=== PATIENT | male | born 1995 | race Two or more races ===

== ENCOUNTER 2024-03-02 23:03 | Emergency (ER) | payer MEDICAID, SELFPAY ==
[2024-03-02 23:04] VITALS: BMI 25.1
[2024-03-03 00:19] VITALS: BP 126/61; PULSE 69; RESP 16; TEMP 36.7; O2SAT 100
--- NOTE | 2024-03-03 00:27 | XR_ITS ---
Examination: CT abdomen with intravenous contrast CT pelvis with intravenous contrast 2-D coronal reconstructions 2-D sagittal reconstructions Date and time of exam:March 03, 2024 0233 hours INDICATIONS: Right groin lump and pain nausea vomiting beginning one month ago. CTDI: vol (mGy) 6.30 DLP: (mGycm) 379 Technique: Multiple axial sections of the abdomen and pelvis have been obtained. 64 slice high-resolution scanner used. 3 mm axial sections have been obtained, post intravenous injection 60 cc [id number] 2-D sagittal, coronal reconstructions obtained. Low dose protocols were performed. One or more of the following dose reduction techniques were used; automated exposure control, adjustment of the mA and/or KV according to patient size, use of iterative reconstruction technique. Findings: No focal liver or splenic lesions Splenomegaly AP dimension 14 cm Dilated inferior vena cava No gallstones No pancreatic mass No hydronephrosis renal or ureteral calculi Aorta normal size Normal appendix No bowel obstruction Urinary bladder intact Osseous structures intact IMPRESSION: Splenomegaly. Normal appendix No renal or ureteral calculi
--- NOTE | 2024-03-03 00:28 | PD.EDRME ---
Rapid Medical Screening Exam COUNTS INCLUDE 234 BEDS AT THE [facility] Arrival date/time: 03/02/24 23:03 29M with history of alcohol abuse and marijauna use presents to ED with 1 day of worsening RLQ/pelvic pain/lump and N/V. Chief Complaint: Urogenital-Male Vital signs: Vital Signs Temperature 98.1 F 03/03/24 00:19 Pulse Rate 69 03/03/24 00:19 Respiratory Rate 16 03/03/24 00:19 Blood Pressure 126/61 03/03/24 00:19 Pulse Oximetry (%) 100 03/03/24 00:19 Oxygen Delivery Method Room Air 03/03/24 00:19
[2024-03-03] MEDS: ONDANSETRON INJ 2 MG/ML INJ 2 ML 4 MG IV ×2 (01:02→02:41)
[2024-03-03] MEDS: MORPHINE SULF INJ 10 MG/ML VIAL 5 MG IVP ×2 (01:03→02:40)
--- NOTE | 2024-03-03 01:31 | PD.EDMALE ---
ED Male Genitalurinary RME/HPI General Chief complaint: Urogenital-Male Stated complaint: RT GROIN LUMP/PAIN X1MON Time Seen by Provider: 03/03/24 01:33 Arrival date/time: 03/02/24 23:03 RME / HPI RME / HPI Narrative: 03/02/24 23:03 29M with history of alcohol abuse and marijauna use presents to ED with 1 day of worsening RLQ/pelvic pain/lump and N/V. ------ Dr. Lambert?s Main ED Evaluation: 29yo male presents to the ED for a chief complaint of lower abdominal pain x 1999. Patient states he started having lower abdominal pain, reporting it is sharp in nature. He reports associated nausea and vomiting, and has not been able to keep anything down. He states the pain has now migrated to his right groin area, currently rating it an 8 out of 10 in severity. He denies any fever, chills, hematemesis or any other associated symptoms. Denies any history of similar symptoms. No known allergies. Related Data Home Medications ?Medication ?Instructions ?Recorded ?Confirmed furosemide 40 mg tablet 40 mg PO BID 06/02/23 06/02/23 spironolactone 25 mg tablet 25 mg PO BID 06/02/23 06/02/23 Previous Rx's ?Medication ?Instructions ?Recorded metronidazole 500 mg tablet 500 mg PO BID #10 tabs 06/07/23 pantoprazole 40 mg tablet,delayed 40 mg PO BID 30 days #60 tabs 06/07/23 release (Protonix) Allergies Allergy/AdvReac Type Severity Reaction Status Date / Time No Known Allergies Allergy Verified 03/02/24 23:07 Review of Systems Review of Systems Systems Reviewed: All systems reviewed, normal except as documented Narrative Review of Systems: Gen: No fever, no chills, no weight loss EYES: No discharge, no visual changes, no pain HEENT: No ear pain, no congestion, no sore throat PULM: No shortness of breath, no cough, no congestion CV: No chest pain, no dyspnea on exertion, no palpitations GI: + nausea, + vomiting, no diarrhea, + pain, no constipation : No frequency, no urgency, no dysuria Musc/skel: No joint pain, no back pain Skin: No rash Psyc: No hallucinations, no depression Heme/Lymph: No easy bleeding or bruising tendencies Neuro: No weakness, no headache Past Medical History Past Medical History NEUROLOGIC: Negative Neurological Disorders or Seizures CARDIAC: Negative Cardiac Disorders or Congestive Heart Failure RESPIRATORY: Negative Chronic Obstructive Pulmonary Disease (COPD) or Asthma GASTROINTESTINAL: Positive Gastrointestinal Disorders and Cirrhosis; Negative Hepatitis GENITOURINARY: Negative Genitourinary Disorders or Renal Disease MUSCULOSKELETAL: Negative Musculoskeletal Disorders ENDOCRINE: Negative Endocrine Disorders, Diabetes Mellitus Type 1 or Diabetes Mellitus Type 2 HEMATOLOGIC: Positive Blood Disorders and Anemia; Negative Sickle Cell Disease OTHER HISTORY: Negative Autoimmune Disease, Blood Transfusions, Blood Transfusion Reaction, Anesthesia Reactions, MRSA, Clostridium Difficile or Cancer Family History FAMILY HISTORY: Positive Family Respiratory Disorders and Family Cancer; Negative Family Psychiatric Problems, Family Cardiac Disorders, Family Gastrointestinal Problems, Family Surgery or Family Anesthesia Reaction Surgical History SURGICAL: Negative Mastectomy or Vasectomy Social History SMOKING STATUS: Never smoker SUBSTANCE USE: marijuana and crack/cocaine ED Exam Narrative Physical exam: GENERAL APPEARANCE: alert and oriented x 4, well-developed, well-nourished, no acute distress HEENT: Normocephalic, atraumatic; pupils equal, round, reactive to light; EOMI; mucous membranes pink, moist; oropharynx clear NECK: Supple LUNGS: CTABL; no wheezes, no rales, no rhonchi HEART: Regular rate, regular rhythm; normal S1, S2; no murmurs ABDOMEN: non distended; normal BS; soft, no guarding, no rebound; no organomegaly; tender, firm, palpable mass at the inguinal region that is consistent with an inguinal hernia BACK: no CVA tenderness EXTREMITIES: atraumatic; no edema NEUROLOGIC: awake; alert and oriented x4; cranial nerves II-XII grossly intact; no focal sensory or motor deficits PSYCHIATRIC: appropriate mood and affect SKIN: warm, dry, normal color; no rashes Course Course Course Narrative: 0232: After the patient received morphine, I applied gentle continuous pressure and was able to reduce the inguinal hernia. Quality Measures none Orders Category Date Time Status CT Screening NOW Care 03/03/24 00:27 Completed Insert IV NOW Care 03/03/24 00:[address] abdomen pelvis w con Stat Exams 03/03/24 00:27 Completed CBC Stat Lab 03/03/24 01:05 Completed CMP [Comprehensive Metabolic Panel] Stat Lab 03/03/24 01:05 Completed Lactate (Lactic Acid) Stat Lab 03/03/24 02:58 Completed Lipase Stat Lab 03/03/24 01:05 Completed Morphine Inj Med 03/03/24 00:27 Discontinued 5 mg IVP X1 ONE Morphine Inj Med 03/03/24 02:21 Discontinued 5 mg IVP X1 ONE Ondansetron Inj [Zofran Inj] Med 03/03/24 00:27 Discontinued 4 mg IV X1 ONE Ondansetron Inj [Zofran Inj] Med 03/03/24 02:21 Discontinued 4 mg IV X1 ONE Sodium Chloride 0.9% 1000 ml [Ns] 1,000 ml Med 03/03/24 02:23 Discontinued IV 999 mls/hr Vital Signs Vital signs: Vital Signs Temperature 98.1 F 03/03/24 00:19 Pulse Rate 69 03/03/24 00:19 Respiratory Rate 16 03/03/24 00:19 Blood Pressure 126/61 03/03/24 00:19 Pulse Oximetry (%) 100 03/03/24 00:19 Oxygen Delivery Method Room Air 03/03/24 00:19 Pulse ox is 100% on room air, which is normal according to my interpretation. Urogenital - Male MDM Narrative MDM Narrative:: Scribe Attestation: 03/03/24 - Silke Herron am scribing for and in the presence of Dr. Lambert. Patient data External records reviewed:: [facility] previous records (Per chart review, patient was admitted here from 06/01/23-06/07/23 for the following: Upper GI bleed, severe anemia, cirrhosis) Clinical information provided by:: patient Social determinants that could affect healthcare access:: substance use (history of marijuana and alcohol abuse) Patient has the following chronic illnesses:: cirrhosis, anemia How is presenting disease/condition affected by chronic disease/condition?: uneffected by Evaluation data The following diagnostics were reviewed and interpreted by me:: lab results and radiology exam(s) Lab and/or radiology exams considered but not ordered:: none Interpretation Summary: CBC is normal, Total Bilirubin is elevated at 3.1, AST and Alkaline Phosphatase are slightly elevated, Lipase is normal, Lactic Acid is normal at 1.9, according to my interpretation. ------ [facility] Preliminary Report Draft Patient: RYAN BOYD Med. Record#: [id number] Birthdate: 1995 Age/Sex: 29 / M Location: [facility] Attending Dr: Ordering Physician: Date of Service: Procedure(s): Accession Number(s): cc: ~ CT scan of the abdomen and pelvis with intravenous contrast (axial sections with sagittal and coronal reformats) March 03, 2024 at 0228 hours Clinical History: Right lower quadrant pelvic pain, lump with nausea, vomiting. Comparison: Compared with the prior study dated June 01, 2023. Findings: The lung bases are clear. Interval resolution of the mild gallbladder wall thickening with mucosal enhancement and sludge. The liver, pancreas, spleen, kidneys and adrenals are unremarkable. No evidence of bowel obstruction. Again seen are dilated fluid filled small bowel loops without transition. The appendix is within normal limits (axial images 139-150/288). There is interval resolution of the previously noted diffuse mesenteric fat smudging and stranding. The urinary bladder is unremarkable. There is no free fluid or free air. The osseous structures are unremarkable. Impression: No evidence of bowel obstruction or appendicitis. Other findings as described above. Report Electronically Signed By: Pillo Vines 03/03/2024 3:40:55 AM [EST] Medications / Prescriptions Medications or Prescriptions considered but not ordered:: none Medication administrations:: Medication Administration History Discontinued Medications Sodium Chloride (Ns) 1,000 mls @ 999 mls/hr IV .Q1H1M ONE Stop: 03/03/24 03:23 Last Admin: 03/03/24 02:42 Dose: 999 mls/hr Documented By: KATHY Morphine Sulfate (Morphine Sulf Inj 10 Mg/Ml Vial) 5 mg IVP X1 ONE Stop: 03/03/24 00:28 Last Admin: 03/03/24 01:03 Dose: 5 mg Documented By: KATHY Morphine Sulfate (Morphine Sulf Inj 10 Mg/Ml Vial) 5 mg IVP X1 ONE Stop: 03/03/24 02:22 Last Admin: 03/03/24 02:40 Dose: 5 mg Documented By: KATHY Ondansetron HCl (Ondansetron Inj 2 Mg/Ml Inj 2 Ml) 4 mg IV X1 ONE; Protocol Stop: 03/03/24 00:28 Last Admin: 03/03/24 01:02 Dose: 4 mg Documented By: KATHY Ondansetron HCl (Ondansetron Inj 2 Mg/Ml Inj 2 Ml) 4 mg IV X1 ONE Stop: 03/03/24 02:22 Last Admin: 03/03/24 02:41 Dose: 4 mg Documented By: KATHY see above Consultations Consultation(s) initiated? (list below): No Diagnosis Urogenital Male Differential Diagnosis: other (incarcerated hernia, strangulated hernia, reducible hernia) Most likely diagnosis given after review of the tests above:: see below Admission Indicated Admission indicated?: not indicated Admission Request Was there a request for admission?: No Disposition Plan Disposition Plan: Discharge Discharge Attestation Discharge Attestation: The patient and all family members were given an opportunity to ask questions and understood the discharge instructions. Discharge instructions specifically effects, indications for sooner follow up or return to the emergency department, and the expected course of current diagnosis. Patient condition: Stable Discharge Plan Plan Patient Disposition: HOME (Self Care) Prescriptions/Referrals Prescriptions/Med Rec: No Action furosemide 40 mg tablet 40 mg PO BID spironolactone 25 mg tablet 25 mg PO BID pantoprazole [Protonix] 40 mg tablet,delayed release (DR/EC) 40 mg PO BID 30 Days Qty: 60 2RF metronidazole 500 mg tablet 500 mg PO BID Qty: 10 0RF Referrals: Vivian Quach MD [Physician] - None Brien,MD Derian [Primary Care Provider] - In 1 week Problem List Clinical Impression: Reducible right inguinal hernia Patient/Caregiver Discharge Instructions Education Materials: ED Hernia (Adult) Print Language: Croatian Stand Alone Forms: Myesha Award Info., Patient Portal Info Letter
[2024-03-03 01:55] LABS: Basophils # (Auto) 0.1 Thou/mm3 (0.0-0.2); Basophils % (Auto) 1 % (0-2.5); Eosinophils # (Auto) 0.1 Thou/mm3 (0.0-0.5); Eosinophils % (Auto) 1 % (0-10); Hematocrit 31.2 % (41.0-53.0); Hemoglobin 10.9 g/dL (13.5-16.0); Immature Granulocytes % (Auto) 0 % (0-0); Immature Granulocytes Auto 0.02 Thou/mm3 (0.00-0.00); Lymphocytes # (Auto) 1.5 Thou/mm3 (1.0-4.8); Lymphocytes % (Auto) 24 % (10-50); Mean Corpuscular HGB Conc 34.9 g/dl (31.0-37.0); Mean Corpuscular Hemoglobin 31.7 pg (25.0-35.0); Mean Corpuscular Volume 91 fL (80-100); Monocytes # (Auto) 0.7 Thou/mm3 (0.0-0.8); Monocytes % (Auto) 11 % (0-12); Neutrophils % (Auto) 63 % (37-80); Nucleated Red Blood Cell % 0 /100 WBC (0); Platelet Count 107 Thou/mm3 (140-440); RDW Standard Deviation 47.5 fL (35.1-43.9); Red Blood Count 3.44 Miln/mm3 (4.50-5.90); White Blood Count 6.4 Thou/mm3 (3.8-10.6)
[2024-03-03 02:00] VITALS: BP 124/78; PULSE 78; RESP 18; TEMP 36.6; O2SAT 98
[2024-03-03 02:12] LABS: Alanine Aminotransferase 23 U/L (10-49); Albumin, Serum 4.3 gm/dL (3.5-5.0); Albumin/Globulin Ratio 1.4 (1.2-2.2); Alkaline Phosphatase 150 U/L (46-116); Anion Gap 12 (7-16); Aspartate Amino Transferase 42 U/L (0-34); BUN/Creatinine Ratio 11 Ratio (12-20); Bilirubin,Total 3.1 mg/dL (0.3-1.2); Blood Urea Nitrogen 10 mg/dL (9-23); Calcium 9.7 mg/dL (8.3-10.6); Calcium (Corrected) 9.7 mg/dL (8.5-10.1); Carbon Dioxide 21.4 mMol/L (20.0-31.0); Chloride 107 mMol/L (98-107); Creatinine (Component) 0.9 mg/dL (0.6-1.3); Estimated Creatinine Clearance 122.8 mL/min (>60); Glucose 117 mg/dL (74-106); Lipase 36 U/L (12-53); Osmolality,Calculated 279 (275-295); Potassium 3.8 mMol/L (3.4-5.1); Sodium 140 mMol/L (136-145); Total Protein 7.3 gm/dL (5.7-8.2); eGFR > 60 See Note
[2024-03-03] MEDS: SODIUM CHLORIDE 0.9% 1000 ML 1,000 ML 999 ML IV (02:42)
[2024-03-03 03:07] LABS: Lactate (Lactic Acid) 1.9 mMol/L (0.4-2.0)
--- NOTE | 2024-03-03 03:41 | PRELIM_ITS ---
CT scan of the abdomen and pelvis with intravenous contrast (axial sections with sagittal and coronal reformats) March 03, 2024 at 0228 hoursClinical History: Right lower quadrant pelvic pain, lump w ith nausea, vomiting.Comparison: Compared with the prior study dated June 01, 2023.Findings:The lung bases are clear.Interval resolution of the mild gallbladder wall thickening with mucosal enhancement and sludge.The liver, pancreas, spleen, kidneys and adrenals are unremarkable.No evidence of bowel o bstruction. Again seen are dilated fluid filled small bowel loops without transition. The appendix is within normal limits (axial images 139-150/288). There is interval resolution of the previously note d diffuse mesenteric fat smudging and stranding.The urinary bladder is unremarkable. There is no free fluid or free air.The osseous structures are unremarkable.Impression:No evidence of bowel obstructio n or appendicitis.Other findings as described above. Report Electronically Signed By: Pillo Vines 1 05/04/2023 3:40:55 AM [EST]
[2024-03-03 04:28] VITALS: BP 120/77; PULSE 71; RESP 16; TEMP 36.7; O2SAT 98
== END 2024-03-03 04:30 | disposition home or self-care (01) ==
PROVIDERS: Physician Assistant; Emergency Provider Emergency Medicine; PCP Family Medicine
DX: K40.90 Unilateral inguinal hernia, without obstruction or gangrene, not specified as recurrent (principal)
CPT/HCPCS: 36415; 74177; 80053; 80307; 81001; 83605; 83690; 85025; 96374; 96375; 96376; 99285; A4649; J2270; J2405; J7030; Q9967

== ENCOUNTER 2024-03-21 11:55 | Emergency (ER) | payer MEDICAID, SELFPAY ==
[2024-03-21 11:56] VITALS: BMI 22.2
[2024-03-21 12:36] VITALS: BP 155/64; PULSE 62; RESP 18; TEMP 36.9; O2SAT 99
--- NOTE | 2024-03-21 12:47 | XR_ITS ---
Examination: CT abdomen and pelvis without contrast. Coronal 3-D reconstructions. Sagittal 2-D reconstructions. Date and time of exam:March 21, 2024 1332 hrs. Comparison March 03, 2024 CTDI: vol (mGy): 7.33 DLP: (mGycm): 392 Technique: Axial images of the abdomen have been obtained, 3 mm slice thickness Intravenous contrast material has not been administered. Low dose protocols were performed. One or more of the following dose reduction techniques were used; automated exposure control, adjustment of the mA and/or KV according to patient size, use of iterative reconstruction technique. Findings: Liver irregular in contour fatty infiltration no focal liver lesions Splenomegaly 13 cm No gallstones No pancreatic mass No hydronephrosis or ureteral calculi Aorta normal size Normal appendix No bowel obstruction Right inguinal hernia containing small bowel, axial image 193 suspicious for early incarcerated small bowel although no bowel obstruction No free air Urinary bladder intact Impression: Right inguinal hernia containing small bowel, suspicious for early incarcerated small bowel although no bowel obstruction at this time, recommend surgical consultation
--- NOTE | 2024-03-21 12:48 | PD.EDRME ---
Rapid Medical Screening Exam RME Arrival date/time: 03/21/24 11:55 29-year-old male with past medical history of right inguinal hernia presents emergency department reporting increased pain, patient reports he is no longer able to reduce his hernia. Chief Complaint: Abdominal Pain Time Seen by Provider: 03/21/24 12:39 Vital signs: Vital Signs Temperature 98.5 F 03/21/24 12:36 Pulse Rate 62 03/21/24 12:36 Respiratory Rate 18 03/21/24 12:36 Blood Pressure 155/64 H 03/21/24 12:36 Pulse Oximetry (%) 99 03/21/24 12:36 Oxygen Delivery Method Room Air 03/21/24 12:36 Vital signs reviewed by provider: Yes
[2024-03-21] MEDS: KETOROLAC INJ 60 MG/2 ML VIAL 30 MG IM (13:04)
[2024-03-21 13:15] LABS: Basophils # (Auto) 0.1 Thou/mm3 (0.0-0.2); Basophils % (Auto) 1 % (0-2.5); Eosinophils # (Auto) 0.2 Thou/mm3 (0.0-0.5); Eosinophils % (Auto) 2 % (0-10); Hematocrit 33.7 % (41.0-53.0); Hemoglobin 11.5 g/dL (13.5-16.0); Immature Granulocytes % (Auto) 0 % (0-0); Immature Granulocytes Auto 0.03 Thou/mm3 (0.00-0.00); Lymphocytes # (Auto) 2.9 Thou/mm3 (1.0-4.8); Lymphocytes % (Auto) 29 % (10-50); Mean Corpuscular HGB Conc 34.1 g/dl (31.0-37.0); Mean Corpuscular Hemoglobin 31.4 pg (25.0-35.0); Mean Corpuscular Volume 92 fL (80-100); Monocytes # (Auto) 0.9 Thou/mm3 (0.0-0.8); Monocytes % (Auto) 10 % (0-12); Neutrophils # (Auto) 5.8 Thou/mm3 (1.8-7.7); Neutrophils % (Auto) 59 % (37-80); Nucleated Red Blood Cell % 0 /100 WBC (0); Platelet Count 145 Thou/mm3 (140-440); RDW Standard Deviation 50.1 fL (35.1-43.9); Red Blood Count 3.66 Miln/mm3 (4.50-5.90); White Blood Count 9.8 Thou/mm3 (3.8-10.6)
[2024-03-21 13:34] LABS: Alanine Aminotransferase 24 U/L (10-49); Albumin, Serum 4.5 gm/dL (3.5-5.0); Albumin/Globulin Ratio 1.6 (1.2-2.2); Alkaline Phosphatase 124 U/L (46-116); Anion Gap 9 (7-16); Aspartate Amino Transferase 43 U/L (0-34); BUN/Creatinine Ratio 15 Ratio (12-20); Bilirubin,Total 3.2 mg/dL (0.3-1.2); Blood Urea Nitrogen 12 mg/dL (9-23); Calcium 9.3 mg/dL (8.3-10.6); Calcium (Corrected) 9.3 mg/dL (8.5-10.1); Carbon Dioxide 22.6 mMol/L (20.0-31.0); Chloride 107 mMol/L (98-107); Creatinine (Component) 0.8 mg/dL (0.6-1.3); Globulin 2.9 gm/dL (2.3-3.5); Glucose 113 mg/dL (74-106); Lipase 31 U/L (12-53); Osmolality,Calculated 278 (275-295); Potassium 3.8 mMol/L (3.4-5.1); Sodium 139 mMol/L (136-145); Total Protein 7.4 gm/dL (5.7-8.2); eGFR > 60 See Note
[2024-03-21 15:26] LABS: Collection Type, Urine Clean Catch
[2024-03-21 15:39] LABS: Amorphous Crystals,Urine Present (Absent); Bilirubin,Urine Negative (Negative); Blood,Urine Negative (Negative); Clarity,Urine Turbid (Clear/Hazy); Color,Urine Yellow (Lt Yel-Yel); Culture Indicated,Urine Not Indicated; Glucose, Urine Negative (Negative); Ketones,Urine Negative (Negative); Leukocyte Esterase,Urine Negative (Negative); Nitrite,Urine Negative (Negative); PH,Urine 6.5 (5.0-7.0); Protein,Urine 1+ (Neg - Trace); RBC,Urine 3 /hpf (0-3); Specific Gravity,Urine 1.031 (1.001-1.035); Squamous Epithelial Cell,Urine 1 /hpf (0-5); WBC,Urine < 1 /hpf (0-5)
--- NOTE | 2024-03-21 15:50 | PD.EDADULT ---
ED General RME/HPI General Chief complaint: Abdominal Pain Stated complaint: RIGHT GROIN HERNIA PAINFUL Time Seen by Provider: 03/21/24 12:39 Arrival date/time: 03/21/24 11:55 RME / HPI RME / HPI narrative: 03/21/24 11:55 RME: 29-year-old male with past medical history of right inguinal hernia presents emergency department reporting increased pain, patient reports he is no longer able to reduce his hernia. DANIELLE HPI: 29-year-old male with a history of recurrent right inguinal hernia for the last month who who presents emerged part with inability to reduce his hernia since this morning. He states his hernia is in the right groin area and protrudes almost every day. He is normally able to reduce it himself except for today. Patient feels that it had spontaneously resolved once he was wheeled back from CT scan. Related Data Home Medications ?Medication ?Instructions ?Recorded ?Confirmed furosemide 40 mg tablet 40 mg PO BID 06/02/23 06/02/23 spironolactone 25 mg tablet 25 mg PO BID 06/02/23 06/02/23 Previous Rx's ?Medication ?Instructions ?Recorded metronidazole 500 mg tablet 500 mg PO BID #10 tabs 06/07/23 pantoprazole 40 mg tablet,delayed 40 mg PO BID 30 days #60 tabs 06/07/23 release (Protonix) Allergies Allergy/AdvReac Type Severity Reaction Status Date / Time No Known Allergies Allergy Verified 03/21/24 11:57 Review of Systems Review of Systems Systems Reviewed: All systems reviewed, normal except as documented ED Exam Narrative Physical exam: GENERAL APPEARANCE: AxOx4, generally well-appearing, no acute distress. HEENT: NC, AT. MMM. EOMI, clear conjunctiva, oropharynx clear. NECK: Supple without lymphadenopathy. No stiffness or restricted ROM. HEART: Normal rate and regular rhythm, normal S1/S1, no m/r/g LUNGS: CTAB, moving air well. No crackles or wheezes are heard. ABDOMEN: Soft, nontender, nondistended with good bowel sounds heard, no inguinal masses bilaterally BACK: No midline C/T/L spine pain or deformity, No CVAT, no obvious deformity. EXTREMITIES: Without cyanosis, clubbing or edema. MUSCULOSKELETAL: FROM of all major joints, no chest tenderness NEUROLOGICAL: Grossly nonfocal. Alert and oriented, moving all 4 extremities. CN not formally tested but appear grossly intact. Observed to ambulate with normal gait. Skin: Warm and dry without any rash. Course Quality Measures none Orders Category Date Time Status CT abdomen pelvis wo con Stat Exams 03/21/24 12:47 Completed CBC Stat Lab 03/21/24 13:02 Completed CMP [Comprehensive Metabolic Panel] Stat Lab 03/21/24 13:02 Completed Lipase Stat Lab 03/21/24 13:02 Completed Urinalysis, C/S if Indicated Stat Lab 03/21/24 15:05 Completed Ketorolac Inj [Toradol Inj] Med 03/21/24 12:48 Discontinued 30 mg IM X1 ONE Vital Signs Vital signs: Vital Signs Temperature 98.5 F 03/21/24 12:36 Pulse Rate 62 03/21/24 12:36 Respiratory Rate 18 03/21/24 12:36 Blood Pressure 155/64 H 03/21/24 12:36 Pulse Oximetry (%) 99 03/21/24 12:36 Oxygen Delivery Method Room Air 03/21/24 12:36 SpO2 99% on room air, patient is not hypoxic [facility] Patient data External records reviewed:: [facility] previous records Clinical information provided by:: patient Social determinants that could affect healthcare access:: none Patient has the following chronic illnesses:: None How is presenting disease/condition affected by chronic disease/condition?: no chronic disease Evaluation data The following diagnostics were reviewed and interpreted by me:: lab results and radiology exam(s) Lab and/or radiology exams considered but not ordered:: None Interpretation Summary: As per narrative Medications Medications considered but not ordered:: None Medication administrations:: Medication Administration History Discontinued Medications Ketorolac Tromethamine (Ketorolac Inj 60 Mg/2 Ml Vial) 30 mg IM X1 ONE Stop: 03/21/24 12:49 Last Admin: 03/21/24 13:04 Dose: 30 mg Documented By: [facility] Above Consultations Consultation(s) initiated? (list below): No Diagnosis Differential Diagnosis ED Complaint MDM: Inguinal hernia, incarcerated hernia, strangulated hernia, lymphadenopathy Most likely diagnosis given after review of the tests above:: See below Admission Indicated Admission indicated?: not indicated Explain why admission is indicated or not indicated:: As per narrative hernia spontaneously reduced. Admission Request Was there a request for admission?: No Disposition Plan Disposition Plan: Discharge Discharge Attestation Discharge Attestation: The patient and all family members were given an opportunity to ask questions and understood the discharge instructions. Discharge instructions specifically effects, indications for sooner follow up or return to the emergency department, and the expected course of current diagnosis. Patient condition: Stable Medical Decision Making MDM Narrative MDM Narrative: Mr. Moffett has a history of cirrhosis (heavy alcohol use, sober now 16 months) who presents with recurrent right inguinal hernia which is normally self reducible however he initially presented unable to reduce. During the process of going to CT having labs drawn, patient's hernia had resolved. Laboratory testing is otherwise unremarkable but consistent with his cirrhosis (LFT and biliary levels appear to be improving consistent with is now abstaining from alcohol). CT suggests an incarcerated hernia, however was reported to resolved and confirmed on my examination. As he currently asymptomatic, his primary issue the hernia is resolved, he is appropriate for outpatient Differential Diagnosis Differential Diagnosis: Inguinal hernia, incarcerated hernia, strangulated hernia, lymphadenopathy Lab Data 03/21/24 13:02 03/21/24 13:02 Labs: Lab Results 03/21/24 03/21/24 Range/Units 13:02 15:05 WBC 9.8 (3.8-10.6) Thou/mm3 RBC 3.66 L (4.50-5.90) Miln/mm3 Hgb 11.5 L (13.5-16.0) g/dL Hct 33.7 L (41.0-53.0) % MCV 92 (80-100) fL MCH 31.4 (25.0-35.0) pg MCHC 34.1 (31.0-37.0) g/dl RDW Std Deviation 50.1 H (35.1-43.9) fL Plt Count 145 D (140-440) Thou/mm3 Neut % (Auto) 59 (37-80) % Lymph % (Auto) 29 (10-50) % [place] % (Auto) 10 (0-12) % Eos % (Auto) 2 (0-10) % Baso % (Auto) 1 (0-2.5) % Neut # (Auto) 5.8 (1.8-7.7) Thou/mm3 Lymph # (Auto) 2.9 (1.0-4.8) Thou/mm3 [place] # (Auto) 0.9 H (0.0-0.8) Thou/mm3 Eos # (Auto) 0.2 (0.0-0.5) Thou/mm3 Baso # (Auto) 0.1 (0.0-0.2) Thou/mm3 Immature Gran # (Auto) 0.03 H (0.00-0.00) Thou/mm3 Absolute Nucleated RBC 0.00 (0.00-0.00) Thou/mm3 Immature Gran % 0 (0-0) % Nucleated RBC % 0 (0) /100 WBC Sodium 139 (136-145) mMol/L Potassium 3.8 (3.4-5.1) mMol/L Chloride 107 (98-107) mMol/L Carbon Dioxide 22.6 (20.0-31.0) mMol/L Anion Gap 9 (7-16) BUN 12 (9-23) mg/dL Creatinine 0.8 (0.6-1.3) mg/dL Estim Creat Clear Calc 133.0 (>60) mL/min eGFR > 60 (60 - ) See Note BUN/Creatinine Ratio 15 (12-20) Ratio Glucose 113 H (74-106) mg/dL Calculated Osmolality 278 (275-295) Calcium 9.3 (8.3-10.6) mg/dL Corrected Calcium 9.3 (8.5-10.1) mg/dL Total Bilirubin 3.2 H (0.3-1.2) mg/dL AST 43 H (0-34) U/L ALT 24 (10-49) U/L Alkaline Phosphatase 124 H (46-116) U/L Total Protein 7.4 (5.7-8.2) gm/dL Albumin 4.5 (3.5-5.0) gm/dL Globulin 2.9 (2.3-3.5) gm/dL Albumin/Globulin Ratio 1.6 (1.2-2.2) Lipase 31 (12-53) U/L Ur Collection Type Clean Catch Urine Color Yellow (Lt Yel-Yel) Urine Clarity Turbid A (Clear/Hazy) Urine pH 6.5 (5.0-7.0) Ur Specific Velpen 1.031 (1.001-1.035) Urine Protein 1+ A (Neg - Trace) Urine Glucose (UA) Negative (Negative) Urine Ketones Negative (Negative) Urine Blood Negative (Negative) Urine Nitrite Negative (Negative) Urine Bilirubin Negative (Negative) Urine Urobilinogen (Auto) 2.0 (0.0-1.0) mg/dL Ur Leukocyte Esterase Negative (Negative) Urine RBC 3 (0-3) /hpf Urine WBC < 1 (0-5) /hpf Ur Squamous Epith Cells 1 (0-5) /hpf Amorphous Crystals Present A (Absent) Urine Bacteria None (None) Ur Culture Indicated? Not Indicated Discharge Plan Plan Patient Disposition: HOME (Self Care) Prescriptions/Referrals Prescriptions/Med Rec: No Action furosemide 40 mg tablet 40 mg PO BID spironolactone 25 mg tablet 25 mg PO BID pantoprazole [Protonix] 40 mg tablet,delayed release (DR/EC) 40 mg PO BID 30 Days Qty: 60 2RF metronidazole 500 mg tablet 500 mg PO BID Qty: 10 0RF Referrals: Vivian Quach MD [Physician] - In 1 week No Primary/Family,Physician [Primary Care Provider] - In 1 week Problem List Clinical Impression: Inguinal hernia Patient/Caregiver Discharge Instructions Education Materials: ED Hernia (Adult) Additional Instructions: Follow-up with your primary care doctor in 2 to 3 days for possible referral to general surgery. You can return to the emergency department sooner if symptoms worsen or if you notice any new, concerning issues. Print Language: Yakut Stand Alone Forms: Myesha Award Info., Patient Portal Info Letter
== END 2024-03-21 16:51 | disposition home or self-care (01) ==
PROVIDERS: Emergency Provider Emergency Medicine
DX: K40.90 Unilateral inguinal hernia, without obstruction or gangrene, not specified as recurrent (principal)
CPT/HCPCS: 36415; 74176; 80053; 81001; 83690; 85025; 96372; 99284; J1885

== ENCOUNTER 2024-07-29 08:55 | Day surgery (SDC) | payer MEDICAID, SELFPAY ==
[2024-07-28 09:55] VITALS: BMI 24.3
[2024-07-28 10:01] VITALS: BMI 24.3
[2024-07-28 10:49] LABS: Basophils % (Auto) 1 % (0-2.5); Eosinophils # (Auto) 0.1 Thou/mm3 (0.0-0.5); Eosinophils % (Auto) 2 % (0-10); Hematocrit 33.8 % (41.0-53.0); Hemoglobin 11.8 g/dL (13.5-16.0); Immature Granulocytes % (Auto) 0 % (0-0); Immature Granulocytes Auto 0.01 Thou/mm3 (0.00-0.00); Lymphocytes # (Auto) 2.5 Thou/mm3 (1.0-4.8); Lymphocytes % (Auto) 40 % (10-50); Mean Corpuscular HGB Conc 34.9 g/dl (31.0-37.0); Mean Corpuscular Hemoglobin 31.2 pg (25.0-35.0); Mean Corpuscular Volume 89 fL (80-100); Monocytes # (Auto) 0.5 Thou/mm3 (0.0-0.8); Monocytes % (Auto) 7 % (0-12); Neutrophils # (Auto) 3.1 Thou/mm3 (1.8-7.7); Neutrophils % (Auto) 50 % (37-80); Nucleated Red Blood Cell % 0 /100 WBC (0); Platelet Count 121 Thou/mm3 (140-440); RDW Standard Deviation 45.3 fL (35.1-43.9); Red Blood Count 3.78 Miln/mm3 (4.50-5.90); White Blood Count 6.2 Thou/mm3 (3.8-10.6)
[2024-07-28 11:00] LABS: Alanine Aminotransferase 21 U/L (10-49); Albumin, Serum 4.4 gm/dL (3.5-5.0); Albumin/Globulin Ratio 1.6 (1.2-2.2); Alkaline Phosphatase 108 U/L (46-116); Anion Gap 9 (7-16); Aspartate Amino Transferase 37 U/L (0-34); BUN/Creatinine Ratio 15 Ratio (12-20); Blood Urea Nitrogen 12 mg/dL (9-23); Calcium 9.3 mg/dL (8.3-10.6); Calcium (Corrected) 9.3 mg/dL (8.5-10.1); Carbon Dioxide 22.6 mMol/L (20.0-31.0); Chloride 109 mMol/L (98-107); Creatinine (Component) 0.8 mg/dL (0.6-1.3); Estimated Creatinine Clearance 129.4 mL/min (>60); Globulin 2.8 gm/dL (2.3-3.5); Glucose 95 mg/dL (74-106); Osmolality,Calculated 280 (275-295); Potassium 3.8 mMol/L (3.4-5.1); Sodium 141 mMol/L (136-145); Total Protein 7.2 gm/dL (5.7-8.2); eGFR > 60 See Note
[2024-07-28 11:04] LABS: INR 1.2 (0.9-1.3)
[2024-07-28 11:05] LABS: Partial Thromboplastin Time 31.4 Seconds (22.0-36.0)
[2024-07-29] VITALS (8 sets, daily range): BP systolic 131–141; BP diastolic 71–83; PULSE 63–100; RESP 14–20; TEMP 36.8–37.6; O2SAT 99–100; BMI 22.8
--- NOTE | 2024-07-29 10:46 | PD.SUROPNT ---
Date of Procedure 07/29/24 Pre Op Diagnosis Right inguinal hernia Post Op Diagnosis Indirect right inguinal hernia Procedure Right inguinal hernia repair with mesh Findings Patient was found to have indirect right inguinal hernia sac Procedure Description Patient brought into the operating room in supine position. After administration of general endotracheal anesthesia, patient's right groin was shaved, prepped and draped in standard surgical manner. The right inguinal crease was anesthetized with half percent Marcaine. An approximately 5 cm incision was made and dissection was carried to subcutaneous tissue. The Reg's fascia was divided and the external oblique aponeurosis was opened towards the external ring. The hernia sac and the spermatic cord structures were from the posterior aspect of the external oblique aponeurosis at the level of pubic tubercle. The hernia sac was then meticulously dissected off the spermatic cord structures at the level of internal ring. Patient was noted to have indirect right inguinal hernia sac. The hernia sac was then ligated at the level of internal ring. The floor of inguinal canal was then reconstructed with ultra Pro proceed mesh. The mesh was secured with running 2-0 Prolene suture. The mesh secured medially to the pubic tubercle, superiorly into the conjoin tendon, inferiorly and to the shelving edge of inguinal ligament, the mesh was placed around the cord structures and tacked under the external oblique aponeurosis laterally. The area was copiously and thoroughly washed and irrigated, all the fluids were suctioned and the suction fluid returned clear. Hemostasis was adequate and satisfactory. External oblique aponeurosis was closed with running 2-0 Vicryl suture, and Reg's fascia was closed with interrupted suture using 3-0 Vicryl. The incision was closed with 4-0 Monocryl in subcutaneous fashion. Instruments, needles and sponge counts were reported to be correct ?2. Patient tolerated the procedure well. He was extubated, breathing spontaneously and without difficulty and was transferred to postanesthesia care in stable condition. Anesthesia GETA and local Pathology / specimen Other (Hernia sac) Estimated Blood Loss 10 Condition Stable Disposition PACU Surgeon Vivian Quach MD Surgical Staff Operation Date: 07/29/24 11:15 Case Staff Anesthesiologist: Kvng Licona RN First Assistant: Elza Camacho
--- NOTE | 2024-07-29 10:48 | SUR.PHASEI ---
1048: Pt. wakes to name then drifts back to sleep, vitals stable, breathing unlabored, no signs of distress, dressing to ABD CDI, no active bleed noted, report received from Mayda LAWS and Lisa SÁNCHEZ.
[2024-07-29] MEDS: fentaNYL CIT INJ 50 mCg/ML AMP 2ML 25 MCG IV (11:09)
--- NOTE | 2024-07-29 11:50 | SUR.PHASEII ---
1150: Pt. AAOx4, vitals stable, breathing unlabored, no complaint of pain or nausea, dressing to ABD CDI, no active bleed noted, pt. toelrated sips of water well, pt. ambulated to wheelchair with steady gait and no assist, no complications. Gave discharge instructions to the pt. and his ride, both verbalized understanding and had no further questions. Pt. left with all personal belongings.
== END 2024-07-29 11:50 | disposition home or self-care (01) ==
PROVIDERS: Anesthesiology; PCP Family Medicine; Referring Provider Surgery; Visit Provider Surgery
PROC: (CPT 49505; principal; 2024-07-29 11:00)
DX: K40.90 Unilateral inguinal hernia, without obstruction or gangrene, not specified as recurrent (principal)
CPT/HCPCS: 49505; 36415; 80053; 85025; 85610; 85730; A4217; A4649; C1781; J0131; J0690; J1100; J2250; J2371; J2405; J2704; J2710; J3010; J3490; J1596

== ENCOUNTER 2024-08-10 22:59 | Emergency (ER) | payer MEDICAID, SELFPAY ==
[2024-08-10 23:01] VITALS: BMI 22.9
--- NOTE | 2024-08-10 23:05 | EKG_ITS ---
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
[2024-08-10 23:54] VITALS: BP 135/79; PULSE 68; RESP 18; TEMP 37; O2SAT 100
--- NOTE | 2024-08-11 00:10 | XR_ITS ---
Examination: PA chest single view TECHNIQUE: Upright PA chest single view Date and time: August 11, 2024 0021 hours Comparison January 03, 2023 INDICATIONS: Chest pain beginning 3 days ago, numbness in the left arm beginning 5 days ago FINDINGS: Normal heart size. Lungs are clear. Osseous structures are intact IMPRESSION: No active disease
--- NOTE | 2024-08-11 00:16 | EDNOTE_ITS ---
ED Chest Pain RME/HPI General Chief Complaint: Chest Pain Stated Complaint: LEFT ARM NUMBNESS FOR 5 DAY, CHEST PAIN, FEEL SLOW Time Seen by Provider: 08/11/24 00:09 Arrival date/time: 08/10/24 22:59 29M with history of alcohol/drug use presents to ED with 5 days of LUE numbness, greatest in hands/fingers, as well as 3 days of CP. Patient denies SOB and URI symptoms. 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 Limitations: no limitations Related Data Home Medications ?Medication ?Instructions ?Recorded ?Confirmed multivitamin (One Daily 1 tab PO QAM 07/28/24 Multivitamin tablet) Previous Rx's ?Medication ?Instructions ?Recorded docusate sodium 100 mg capsule 100 mg PO BID #30 caps 07/29/24 (Colace) hydrocodone 5 mg-acetaminophen 325 1 tab PO Q6H PRN pa in (scale score 07/29/24 mg tablet 7-10) #20 tabs ibuprofen 600 mg tablet 600 mg PO Q8H PRN pain (scal e 07/29/24 score 4-6) #15 tabs Allergies Allergy/AdvReac Type Severity Reaction Status Date / Time No Known Allergies Allergy Verified 08/10/24 23:00 Review of Systems Review of Systems Systems Reviewed: All systems reviewed, normal except as documented Constitutional Constitutional: Reports system reviewed and no additional complaints, except as documented, Denies fever(s) and Denies headache(s) ENT Ears, Nose, Mouth, and Throat: Denies disequilibrium and Denies headache(s) Cardiovascular Cardiovascular: Reports system reviewed and no additional complaints, except as documented, Reports as per HPI, Reports chest pain and Denies dyspnea Respiratory Respiratory: Reports system reviewed and no additional complaints, except as documented, Denies cough and Denies dyspnea Gastrointestinal Gastrointestinal: Reports system reviewed and no additional complaints, except as documented, Denies abdominal pain, Denies nausea and Denies vomiting Musculoskeletal Musculoskeletal: Reports numbness Neurologic Neurologic: Reports system reviewed and no additional complaints, except as documented, Reports as per HPI, Denies confusion, Denies disequilibrium, Denies headache(s) and Reports numbness Psychiatric Psychiatric: Denies confusion Past Medical History Past Medical History NEUROLOGIC: Negative Neurological Disorders or Seizures CARDIAC: Positive Cardiac Disorders; Negative Congestive Heart Failure RESPIRATORY: Negative Chronic Obstructive Pulmonary Disease (COPD) or Asthma GASTROINTESTINAL: Positive Gastrointestinal Disorders and Cirrhosis; Negative Hepatitis GENITOURINARY: Positive Inguinal Hernia; Negative Genitourinary Disorders or Renal Disease MUSCULOSKELETAL: Negative Musculoskeletal Disorders ENDOCRINE: Negative Endocrine Disorders, Diabetes Mellitus Type 1 or Diabetes Mellitus Type 2 HEMATOLOGIC: Positive Blood Disorders and Anemia; Negative Sickle Cell Disease OTHER HISTORY: Positive Hospitalization (liver) and Blood Transfusions; Negative Autoimmune Disease, Shingles, Blood Transfusion Reaction, Anesthesia Reactions, MRSA, Clostridium Difficile or Cancer Family History FAMILY HISTORY: Positive Family Cardiac Disorders and Family Cancer; Negative Family Psychiatric Problems, Family Respiratory Disorders, Family Gastrointestinal Problems, Family Surgery or Family Anesthesia Reaction Surgical History SURGICAL: Negative Mastectomy or Vasectomy Social History SMOKING STATUS: Former smoker SUBSTANCE USE: marijuana and crack/cocaine ED Exam General Limitations: Present no limitations General appearance: Present alert and in no apparent distress Head Head exam: Present atraumatic Eye Eye exam: Present normal appearance, PERRL and EOMI ENT ENT exam: Present normal exam, normal oropharynx and mucous membranes moist Neck Neck exam: Present normal inspection, full ROM and trachea midline Chest Chest inspection: Present normal inspection and symmetric chest wall rise Respiratory Respiratory exam: Present normal lung sounds bilaterally Cardiovascular Cardiovascular exam: Present regular rate, normal rhythm and normal heart sounds Abdominal Exam Abdominal exam: Present soft and normal bowel sounds Extremities Exam Extremities exam: Present normal inspection and full ROM Back Exam Back exam: Present normal inspection and full ROM Neurological Exam Neurological exam: Present alert, oriented X3 and CN II-XII intact Psychiatric Psychiatric exam: Present normal affect and normal mood Skin Skin exam: Present warm, dry, intact and normal color Course Quality Measures none Orders Category Date Time Status EKG (ED ONLY) *Do not use* NOW Care 08/10/24 23:05 Completed EKG (ED Only) Stat Exams 08/10/24 23:05 Draft XR chest 1V portable Stat Exams 08/11/24 00:10 Taken Alcohol, Blood Medical Stat Lab 08/11/24 00:20 Completed B-Type Natriuretic Peptide Stat Lab 08/11/24 00:20 Completed CBC Stat Lab 08/11/24 00:20 Completed Comprehensive Metabolic Panel Stat Lab 08/11/24 00:20 Completed Drug Screen,Urine Stat Lab 08/11/24 00:49 Completed Lipase Stat Lab 08/11/24 00:20 Completed Magnesium Stat Lab 08/11/24 00:20 Completed Troponin I Stat Lab 08/11/24 00:20 Completed Diazepam [Valium] Med 08/11/24 00:10 Discontinued 5 mg PO X1 ONE Vital Signs Vital signs: Vital Signs Temperature 98.6 F 08/10/24 23:54 Pulse Rate 68 08/10/24 23:54 Respiratory Rate 18 08/10/24 23:54 Blood Pressure 135/79 H 08/10/24 23:54 Pulse Oximetry (%) 100 08/10/24 23:54 Oxygen Delivery Method Room Air 08/10/24 23:54 O2 at 100% on RA and WNLs Chest Pain MDM Narrative MDM Narrative:: 29M with history of alcohol/drug use presents to ED with 5 days of LUE numbness, greatest in hands/fingers, as well as 3 days of CP. Patient denies SOB and URI symptoms. 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 Physical exam reveals normal pupil response and EOM. RRR. Clear lungs. Normal WOB. LUE exam normal. Patient is afebrile, calm, and alert. EKG is NSR. Wet CXR read normal pending official report. BNP normal. No leukocytosis. CMP unremarkable except for elevated bili, which is baseline for patient. Tox screen marijuana. Patient data External records reviewed:: [facility] previous records Clinical information provided by:: patient Social determinants that could affect healthcare access:: alcohol use Patient has the following chronic illnesses:: alcohol/drug use How is presenting disease/condition affected by chronic disease/condition?: exacerbated by Evaluation data The following diagnostics were reviewed and interpreted by me:: lab results, radiology exam(s) and EKG tracing(s) Lab and/or radiology exams considered but not ordered:: ordered Interpretation Summary: above Medications / Prescriptions Medications or Prescriptions considered but not ordered:: ordered Medication administrations:: Medication Administration History Discontinued Medications Diazepam (Diazepam 5 Mg Tablet) 5 mg PO X1 ONE Stop: 08/11/24 00:11 Last Admin: 08/11/24 00:53 Dose: 5 mg Documented By: above Consultations Consultation(s) initiated? (list below): No Diagnosis Chest Pain Differential Diagnosis: fracture of rib, pneumothorax, stable angina, unstable angina pectoris, atypical chest pain, st elevation myocardial infarction, costochondritis, chest pain, biliary colic and other (anxiety) Most likely diagnosis given after review of the tests above:: atypical chest pain Admission Indicated Admission indicated?: not indicated Admission Request Was there a request for admission?: No Disposition Plan Disposition Plan: Discharge Discharge Attestation Discharge Attestation: The patient and all family members were given an opportunity to ask questions and understood the discharge instructions. Discharge instructions specifically effects, indications for sooner follow up or return to the emergency department, and the expected course of current diagnosis. Patient condition: Stable Discharge Plan Plan Patient Disposition: HOME (Self Care) Discharge Disposition comment: Stable Prescriptions/Referrals Prescriptions/Med Rec: No Action multivitamin [One Daily Multivitamin] Tablet 1 tab PO QAM docusate sodium [Colace] 100 mg capsule 100 mg PO BID Qty: 30 0RF ibuprofen 600 mg tablet 600 mg PO Q8H PRN (Reason: pain (scale score 4-6)) Qty: 15 0RF hydrocodone-acetaminophen 5-325 mg tablet 1 tab PO Q6H MDD 4 PRN (Reason: pain (scale score 7-10)) Qty: 20 0RF Referrals: Derian Tesfaye MD [Primary Care Provider] - In 1 week Problem List Clinical Impression: Atypical chest pain Patient/Caregiver Discharge Instructions Education Materials: ED Chest Pain, Uncertain Cause Additional Instructions: Please follow-up with PCP within 24-48 hours and return immediately if symptoms worsen. Print Language: Mozambican Stand Alone Forms: Patient Portal Info Letter LENORA/COURTNEY Supervising Physician RHONA Supervising Physician: Dr. Hallman
[2024-08-11 00:32] LABS: Basophils # (Auto) 0.1 Thou/mm3 (0.0-0.2); Basophils % (Auto) 1 % (0-2.5); Eosinophils # (Auto) 0.2 Thou/mm3 (0.0-0.5); Eosinophils % (Auto) 2 % (0-10); Hematocrit 30.7 % (41.0-53.0); Hemoglobin 11.1 g/dL (13.5-16.0); Immature Granulocytes % (Auto) 0 % (0-0); Immature Granulocytes Auto 0.01 Thou/mm3 (0.00-0.00); Lymphocytes # (Auto) 2.6 Thou/mm3 (1.0-4.8); Lymphocytes % (Auto) 37 % (10-50); Mean Corpuscular HGB Conc 36.2 g/dl (31.0-37.0); Mean Corpuscular Hemoglobin 31.4 pg (25.0-35.0); Mean Corpuscular Volume 87 fL (80-100); Monocytes # (Auto) 0.6 Thou/mm3 (0.0-0.8); Monocytes % (Auto) 8 % (0-12); Neutrophils # (Auto) 3.7 Thou/mm3 (1.8-7.7); Neutrophils % (Auto) 52 % (37-80); Nucleated Red Blood Cell % 0 /100 WBC (0); Platelet Count 102 Thou/mm3 (140-440); RDW Standard Deviation 42.5 fL (35.1-43.9); Red Blood Count 3.54 Miln/mm3 (4.50-5.90); White Blood Count 7.1 Thou/mm3 (3.8-10.6)
[2024-08-11 00:51] LABS: Alanine Aminotransferase 29 U/L (10-49); Albumin/Globulin Ratio 1.5 (1.2-2.2); Alcohol, Blood Medical < 3.0 mg/dL (0-10.0); Alkaline Phosphatase 98 U/L (46-116); Anion Gap 11 (7-16); Aspartate Amino Transferase 51 U/L (0-34); BUN/Creatinine Ratio 13 Ratio (12-20); Bilirubin,Total 2.5 mg/dL (0.3-1.2); Blood Urea Nitrogen 10 mg/dL (9-23); Calcium 8.7 mg/dL (8.3-10.6); Calcium (Corrected) 8.7 mg/dL (8.5-10.1); Carbon Dioxide 21.6 mMol/L (20.0-31.0); Chloride 111 mMol/L (98-107); Creatinine (Component) 0.8 mg/dL (0.6-1.3); Estimated Creatinine Clearance 137.3 mL/min (>60); Globulin 2.7 gm/dL (2.3-3.5); Glucose 93 mg/dL (74-106); Lipase 45 U/L (12-53); Magnesium 1.9 mg/dL (1.6-2.6); Osmolality,Calculated 285 (275-295); Potassium 4.2 mMol/L (3.4-5.1); Sodium 144 mMol/L (136-145); Total Protein 6.7 gm/dL (5.7-8.2); Troponin I < 0.020 ng/mL (0.0-0.045); eGFR > 60 See Note
[2024-08-11] MEDS: DIAZEPAM 5 MG TABLET PO (00:53)
[2024-08-11 00:57] LABS: B-Type Natriuretic Peptide 30 pg/mL (0-100)
[2024-08-11 01:06] LABS: Amphetamine/Methamp Scrn,U Negative (Negative); Barbiturate Screen,Urine Negative (Negative); Benzodiazepines Screen,Urine Negative (Negative); Benzoylecgonine Screen, Ur Negative (Negative); Fentanyl Screen,Urine Negative (Negative); Opiate Screen,Urine Negative (Negative); THC Screen,Urine Positive (Negative)
[2024-08-11 02:07] VITALS: BP 122/72; PULSE 72; RESP 16; TEMP 36.8; O2SAT 98
== END 2024-08-11 02:09 | disposition home or self-care (01) ==
PROVIDERS: Physician Assistant; Emergency Provider Emergency Medicine; PCP Family Medicine
DX: R07.89 Other chest pain (principal); R20.0 Anesthesia of skin
CPT/HCPCS: 36415; 71045; 80053; 80307; 80320; 83690; 83735; 83880; 84484; 85025; 93005; 99283; A9270; G0480